=== PATIENT | male | born 1960 | race Caucasian/White ===

== ENCOUNTER 2020-12-19 10:06 | Emergency (ER) | payer BC, MEDICARE ==
[~2020-12-19] VITALS: Ht 175.3 cm; Wt 75.0 kg
[2020-12-19 10:30] LABS: BASOPHILS % (AUTO) 0.3 % (0-1); EOSINOPHILS # (AUTO) 0.2 X10'3 (0-0.9); EOSINOPHILS % (AUTO) 3.5 % (0-6); HEMATOCRIT 39.5 % (42.0-52.0); HEMOGLOBIN 13.5 g/dl (14.0-17.9); LYMPHOCYTES % (AUTO) 15.4 % (21-51); MEAN CORPUSCULAR HEMOGLOBIN 31.3 PG (27.0-31.0); MEAN CORPUSCULAR HGB CONC 34.3 g/dL (33.0-36.5); MEAN CORPUSCULAR VOLUME 91.3 FL (78-98); MEAN PLATELET VOLUME 7.2 FL (7.4-10.4); MONOCYTES # (AUTO) 0.7 X10'3 (0-0.9); MONOCYTES % (AUTO) 11.4 % (2-12); NEUTROPHILS # (AUTO) 4.3 X10'3 (1.8-7.7); NEUTROPHILS % (AUTO) 69.4 % (42-75); PLATELET COUNT 285 X10'3 (140-440); RED BLOOD COUNT 4.33 X10'6 (4.70-6.10); RED CELL DISTRIBUTION WIDTH 12.4 % (11.5-14.5); WHITE BLOOD COUNT 6.2 X10'3 (4.5-11.0)
--- NOTE | 2020-12-19 10:30 | NUR ---
Dr. Gallagher at bedside.
--- NOTE | 2020-12-19 10:32 | NUR ---
Alexa stroke RN at bedside.
--- NOTE | 2020-12-19 10:34 | NUR ---
Dr. Arzola/tele neuro on going.Family at bedside.
[2020-12-19 10:43] LABS: PARTIAL THROMBOPLASTIN TIME 27 SECONDS (22-32)
[2020-12-19 10:46] LABS: ALANINE AMINOTRANSFERASE 22 U/L (12-78); ALBUMIN 3.7 G/DL (3.4-5.0); ALBUMIN/GLOBULIN RATIO 1.2 (1.1-1.5); ALKALINE PHOSPHATASE 74 IU/L (46-116); ANION GAP 8 (8-16); ASPARTATE AMINO TRANSFERASE 14 U/L (10-37); BILIRUBIN,TOTAL 0.3 MG/DL (0.1-1.0); BLOOD UREA NITROGEN 5 MG/DL (7-18); BUN/CREATININE RATIO 8.1 (5.4-32.0); CALCIUM 9.1 MG/DL (8.5-10.1); CHLORIDE 102 MMOL/L (99-107); CREATININE 0.62 MG/DL (0.60-1.10); GLUCOSE 91 MG/DL (70-104); POTASSIUM 3.9 MMOL/L (3.5-5.1); SODIUM 138 MMOL/L (135-145); TOTAL CARBON DIOXIDE 28.5 MMOL/L (24-32); TOTAL PROTEIN 6.8 G/DL (6.4-8.2); eGFR > 90 ML/MIN
[2020-12-19 10:48] LABS: TROPONIN I < 0.04 NG/ML (0.0-0.05)
[2020-12-19] MEDS ORDERED: proCHLORperazine 10 MG/2 ml inj IV ONE (10:50)
[2020-12-19] MEDS ORDERED: morphine 4 MG/ML inj SYRINge IV ONE (10:50)
[2020-12-19] MEDS ORDERED: ondansetron/PF 4mg/2ml inj IV STA (10:53)
--- NOTE | 2020-12-19 11:05 | NUR ---
Morphine 2mg iv admin instead of 4mg per patient request.Dr. Jaramillo aware.
--- NOTE | 2020-12-19 11:40 | NUR ---
relieving RN for break, pt is resting quietly on gurney, resp even and unlabored, on nasal cannula 2 liters placed by stroke nurse, family at bedside
--- NOTE | 2020-12-19 11:54 | NUR ---
speech therapist at bedside for swallow evaluation
--- NOTE | 2020-12-19 13:37 | NUR ---
patient given a urinal,spouse at bedside.
--- NOTE | 2020-12-19 13:54 | NUR ---
sbp 95mmhg,patient asymptomatic,received a verbal order for 1L NS bolus from Dr. Jaramillo.
--- NOTE | 2020-12-19 13:54 | NUR ---
500 clear urine out from urinal.
[2020-12-19] MEDS ORDERED: normal saline 1000ml 1,000 ML IV STA (13:55)
--- NOTE | 2020-12-19 15:29 | NUR ---
MRI CONSENT FAXED TO [facility].
--- NOTE | 2020-12-19 15:40 | NUR ---
300ML YELLOW URINE OUT.
--- NOTE | 2020-12-19 17:06 | NUR ---
PATIENT SBA TO [facility],PATIENT REPORTS ALL SYMPTOMS RESOLVED, REPORTS NORMAL STRENGTH TO LEFT UPPER AND LOWER EXTREMITY.
--- NOTE | 2020-12-19 17:06 | NUR ---
PATIENT ASSISTED TO [facility], DENIES DIZZINESS,BM X1.
[2020-12-19] MEDS ORDERED: GABA-581 PO (17:11)
[2020-12-19] MEDS ORDERED: CARB200T8 PO (17:11)
[2020-12-19] MEDS ORDERED: NORT25CA PO (17:11)
[2020-12-19] MEDS ORDERED: LAMO100T PO (17:11)
[2020-12-19] MEDS ORDERED: DULO60CA65 PO (17:11)
[2020-12-19] MEDS ORDERED: TRAZ-256 PO (17:11)
[2020-12-19] MEDS ORDERED: LACO50TA2 PO (17:11)
[2020-12-19] MEDS ORDERED: OXYB5TAB16 PO ×2 (17:11→17:12)
[2020-12-19] MEDS ORDERED: BACL10TA2 PO (17:11)
[2020-12-19] MEDS ORDERED: HYDR50TA65 PO (17:11)
[2020-12-19] MEDS ORDERED: carBAMazepine Ext. Release 200 MG TAB.ER.12H PO SCH (18:00)
[2020-12-19] MEDS ORDERED: baclofen 10mg tablet PO SCH (18:00)
--- NOTE | 2020-12-19 19:09 | NUR ---
Patient offered his 1800 medication and notified he would be discharged home. Patient and declined medication at this time and states "We will take them as soon as we get home".
[2020-12-19 19:14] VITALS: BP 138/86
[2020-12-19] MEDS ORDERED: LACOSAMIDE 50 MG TABLET PO SCH (20:00)
[2020-12-19] MEDS ORDERED: oxybutynin 5mg tablet PO SCH (20:00)
[2020-12-19] MEDS ORDERED: lamoTRIgine 25mg tablet PO SCH (20:00)
[2020-12-19] MEDS ORDERED: traZODone 50mg tablet PO SCH (21:00)
[2020-12-19] MEDS ORDERED: nortriptyline 25mg capsule PO SCH (21:00)
[2020-12-19] MEDS ORDERED: gabapentin 300mg capsule PO SCH (21:00)
[2020-12-19] MEDS ORDERED: hydrOXYzine 25 MG tablet PO SCH (21:00)
== END 2020-12-19 19:35 | disposition home or self-care (01) ==
LOC: ER 10:06
DX: R51.9 Headache, unspecified (principal); R53.1 Weakness; R41.0 Disorientation, unspecified; Z85.841 Personal history of malignant neoplasm of brain; Z98.890 Other specified postprocedural states; Z79.899 Other long term (current) drug therapy
CPT/HCPCS: 36415; 70450; 71045; 80053; 82948; 84484; 85025; 85610; 85730; 92508; 92616; 93005; 96361; 96374; 96375; 99285; J0780; J2270; J2405; J7030